=== PATIENT | female | born 1955 | race Caucasian/White ===

== ENCOUNTER → 2017-10-23 15:00 | Outpatient (REF) | payer MEDICAID, SELFPAY ==
[2017-10-23 18:19] LABS: Basophils # 0.1 K/mm3 (0-0.2); Basophils % 0.7 % (0.1-2.0); Eosinophils # 0.3 K/mm3 (0.0-0.4); Eosinophils % 2.7 % (0.1-12.0); Hematocrit 41.6 % (37.0-47.0); Hemoglobin 12.9 g/dL (12.2-16.2); Lymphocytes # 2.9 K/mm3 (0.7-4.5); Lymphocytes % 27.8 K/mm3 (10-50); Mean Corpuscular Volume 90.6 fl (81-99); Mean Platelet Volume 10.1 fl (7.4-10.4); Monocytes # 0.6 K/mm3 (0.1-1.0); Monocytes % 5.4 % (1.7-9.3); Neutrophils # 6.6 K/mm3 (1.8-7.8); Neutrophils % 63.3 % (37.0-80.0); Platelet Count 319 K/mm3 (142-424); Red Blood Count 4.59 M/mm3 (4.20-5.40); Red Cell Distribution Width 13.9 % (11.5-17.5); White Blood Count 10.4 K/mm3 (4.8-10.8)
[2017-10-23 18:41] LABS: Alanine Aminotransferase 19 U/L (12-78); Albumin Level 4.3 gm/dL (3.4-5.0); Albumin/Globulin Ratio 1.3 (1.1-1.8); Alkaline Phosphatase 62 U/L (46-116); Anion Gap 17.9 mEq/L (5-15); Aspartate Amino Transferase 11 U/L (15-37); Bilirubin,Total 0.4 mg/dL (0.2-1.0); Blood Urea Nitrogen 17 mg/dL (7-18); Carbon Dioxide 23 mmol/L (21.0-32.0); Chloride 100 mmol/L (98-107); Chol/HDL Ratio 2.4 (1-3.5); Cholesterol 130 mg/dL (140-200); Creatinine,Serum 1.03 mg/dL (0.55-1.02); Estimated Glomerular Filt Rate 54 ml/min (>60); Free T4 (Free Thyroxine) 1.22 ng/dl (0.76-1.46); GFR (African American) 65 ML/MIN (>60); Globulin 3.2 gm/dl (1.3-3.2); Glucose 384 mg/dL (74-106); HDL Cholesterol 55 mg/dL (29-89); LDL Cholesterol 39 mg/dL (0-130); Potassium 4.9 mmoL/L (3.5-5.1); Sodium 136 mmol/L (136-145); Thyroid Stimulating Hormone 1.24 uIU/ml (0.358-3.740); Total Protein,Serum 7.5 gm/dL (6.4-8.2); Triglycerides 178 mg/dL (30-200); VLDL Cholesterol 36 mg/dL (0-40)
[2017-10-23 18:59] LABS: Hemoglobin A1C 10.2 % (0.0-7.0)
[2017-10-25 11:18] LABS: Creatinine, Urine 64.9 mg/dL (Not Estab.); Microalbumin, Urine 23.3 ug/mL (Not Estab.)
== END ==
LOC: LAB 15:00
PROVIDERS: Visit Provider Physician Assistant
DX: E11.65 Type 2 diabetes mellitus with hyperglycemia (principal); E53.8 Deficiency of other specified B group vitamins; I25.10 Atherosclerotic heart disease of native coronary artery without angina pectoris; E03.9 Hypothyroidism, unspecified; K21.9 Gastro-esophageal reflux disease without esophagitis; E78.5 Hyperlipidemia, unspecified; I10 Essential (primary) hypertension; M79.7 Fibromyalgia
CPT/HCPCS: 80053; 80061; 82043; 82570; 82652; 83036; 84439; 84443; 85025

== ENCOUNTER → 2018-01-24 14:32 | Outpatient (REF) | payer MEDICAID, SELFPAY ==
[2018-01-24 19:10] LABS: Hemoglobin A1C 8.7 % (0.0-7.0)
== END ==
LOC: LAB 14:32
PROVIDERS: Visit Provider Physician Assistant
DX: M79.7 Fibromyalgia (principal); E11.9 Type 2 diabetes mellitus without complications
CPT/HCPCS: 83036

== ENCOUNTER → 2019-01-08 17:33 | Outpatient (CLI) | payer MEDICAID, SELFPAY ==
[2019-01-08 18:11] LABS: Basophils # 0.1 K/mm3 (0-0.2); Basophils % 0.7 % (0.1-2.0); Eosinophils # 0.4 K/mm3 (0.0-0.4); Eosinophils % 4.6 % (0.1-12.0); Hematocrit 39.5 % (37.0-47.0); Hemoglobin 12.5 g/dL (12.2-16.2); Lymphocytes # 2.6 K/mm3 (0.7-4.5); Lymphocytes % 27.8 % (10-50); Mean Corpuscular HGB Conc 31.8 g/dL (31.8-35.4); Mean Corpuscular Hemoglobin 28.6 pg (27.0-31.2); Mean Corpuscular Volume 89.9 fl (81-99); Monocytes # 0.4 K/mm3 (0.1-1.0); Monocytes % 4.3 % (1.7-9.3); Neutrophils # 5.7 K/mm3 (1.8-7.8); Neutrophils % 62.5 % (37.0-80.0); Platelet Count 370 K/mm3 (142-424); Red Blood Count 4.39 M/mm3 (4.20-5.40); Red Cell Distribution Width 13.9 % (11.5-17.5); White Blood Count 9.2 K/mm3 (4.8-10.8)
[2019-01-08 18:27] LABS: Hemoglobin A1C 8.5 % (0.0-7.0)
[2019-01-08 18:29] LABS: Alanine Aminotransferase 24 U/L (12-78); Albumin Level 4.1 gm/dL (3.4-5.0); Albumin/Globulin Ratio 1.4 (1.1-1.8); Alkaline Phosphatase 67 U/L (46-116); Anion Gap 17.6 mEq/L (5-15); Aspartate Amino Transferase 13 U/L (15-37); Bilirubin,Total 0.4 mg/dL (0.2-1.0); Blood Urea Nitrogen 13 mg/dL (7-18); Calcium 9.3 mg/dL (8.5-10.1); Carbon Dioxide 23 mmol/L (21.0-32.0); Chloride 94 mmol/L (98-107); Chol/HDL Ratio 1.9 (1-3.5); Cholesterol 124 mg/dL (140-200); Creatinine,Serum 1.01 mg/dL (0.55-1.02); Estimated Glomerular Filt Rate 55 ml/min (>60); GFR (African American) 67 ML/MIN (>60); Globulin 2.9 gm/dl (1.3-3.2); Glucose 288 mg/dL (74-106); HDL Cholesterol 64 mg/dL (29-89); LDL Cholesterol 48 mg/dL (0-130); Potassium 4.6 mmoL/L (3.5-5.1); Sodium 130 mmol/L (136-145); T4 (Thyroxine) 6.9 ug/dl (4.7-13.3); Thyroid Stimulating Hormone 1.33 uIU/ml (0.358-3.740); Triglycerides 61 mg/dL (30-200); VLDL Cholesterol 12 mg/dL (0-40)
[2019-01-10 11:34] LABS: Vitamin D 25 Hydroxy 36.1 ng/mL (30.0-100.0)
== END ==
PROVIDERS: Visit Provider Physician Assistant
DX: E11.9 Type 2 diabetes mellitus without complications (principal); Z79.4 Long term (current) use of insulin; E55.9 Vitamin D deficiency, unspecified
CPT/HCPCS: 80053; 80061; 82652; 83036; 84436; 84443; 85025

== ENCOUNTER → 2020-02-18 17:36 | Outpatient (CLI) | payer MEDICARE, MEDICAID, SELFPAY ==
[2020-02-18 19:55] LABS: Alanine Aminotransferase 16 U/L (12-78); Albumin Level 4.5 g/dl (3.5-5.0); Albumin/Globulin Ratio 1.6 (1.1-1.8); Alkaline Phosphatase 101 U/L (38-126); Anion Gap 19.4 mEq/L (5-15); Aspartate Amino Transferase 29 U/L (14-36); Bilirubin,Total 0.5 mg/dl (0.2-1.3); Blood Urea Nitrogen 20 mg/dl (7-17); Carbon Dioxide 21 mmol/L (22.0-30.0); Chloride 100 mmol/L (98-107); Cholesterol 148 mg/dl (140-200); Estimated Glomerular Filt Rate 72 ml/min (>60); GFR (African American) 87 ML/MIN (>60); Globulin 2.9 g/dL (1.3-3.2); Glucose 241 mg/dl (74-100); HDL Cholesterol 74 mg/dl (40-60); Potassium 4.4 mmoL/L (3.5-5.1); Sodium 136 mmol/L (136-145); Total Protein,Serum 7.4 g/dl (6.3-8.2); Triglycerides 87 mg/dl (30-150); VLDL Cholesterol 17 mg/dL (0-40)
[2020-02-18 20:07] LABS: Direct LDL Cholesterol 59.79 mg/dL (100-129)
[2020-02-18 20:13] LABS: Hemoglobin A1C 8.4 % (4.0-6.0); T4 (Thyroxine) 8.3 ug/dl (5.53-11.0)
[2020-02-18 20:26] LABS: Thyroid Stimulating Hormone 1.37 uIU/mL (0.465-4.68)
[2020-02-18 20:32] LABS: Basophils # 0.1 K/mm3 (0-0.2); Basophils % 0.5 % (0.1-2.0); Eosinophils # 0.3 K/mm3 (0.0-0.4); Eosinophils % 2.2 % (0.1-12.0); Hemoglobin 13.4 g/dL (12.2-16.2); Lymphocytes # 3.3 K/mm3 (0.7-4.5); Lymphocytes % 28.8 % (10-50); Mean Corpuscular HGB Conc 33.5 g/dL (31.8-35.4); Mean Corpuscular Volume 89.6 fl (81-99); Mean Platelet Volume 9.8 fl (7.4-10.4); Monocytes # 0.6 K/mm3 (0.1-1.0); Neutrophils # 7.2 K/mm3 (1.8-7.8); Neutrophils % 63.5 % (37.0-80.0); Platelet Count 316 K/mm3 (142-424); Red Blood Count 4.46 M/mm3 (4.20-5.40); Red Cell Distribution Width 13.8 % (11.5-17.5); White Blood Count 11.3 K/mm3 (4.8-10.8)
[2020-02-18 22:47] LABS: Creatinine,Urine Random 15 mg/dL (Not Estab.); Microalbumin < 6.000 mg/L (0-16.7)
== END ==
PROVIDERS: Visit Provider Physician Assistant
DX: E11.40 Type 2 diabetes mellitus with diabetic neuropathy, unspecified (principal); E55.9 Vitamin D deficiency, unspecified
CPT/HCPCS: 80053; 80061; 82043; 82306; 82570; 83036; 84436; 84443; 85025

== ENCOUNTER → 2020-07-21 13:05 | Outpatient (CLI) | payer MEDICARE, MEDICAID, SELFPAY ==
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
== END ==
PROVIDERS: PCP Physician Assistant; Visit Provider Emergency Medicine
DX: M54.9 Dorsalgia, unspecified (principal); M54.5 Low back pain
CPT/HCPCS: 72148; 76376

== ENCOUNTER → 2020-08-23 18:08 | Outpatient (CLI) | payer MEDICARE, MEDICAID, SELFPAY ==
[2020-08-23 19:02] LABS: Microalbumin/Creatinine Ratio 55.3
[2020-08-23 19:04] LABS: Creatinine,Urine Random 15 mg/dL (Not Estab.)
== END ==
PROVIDERS: Visit Provider Emergency Medicine
DX: G62.9 Polyneuropathy, unspecified (principal)
CPT/HCPCS: 82043; 82570

== ENCOUNTER → 2020-10-19 17:29 | Outpatient (CLI) | payer MEDICARE, MEDICAID, SELFPAY ==
[2020-10-20 15:11] LABS: Barbiturates Screen,Urine Negative ng/ml (<200)
[2020-10-20 15:12] LABS: Amphetamine/Metha Screen,Urine Negative ng/ml (<1000); Benzodiazepines Screen,Urine Negative ng/ml (<200)
[2020-10-20 15:13] LABS: Cannabinoid Screen,Urine Negative ng/ml (<50); Cocaine Screen,Urine Negative ng/ml (<300)
[2020-10-20 15:14] LABS: Methadone Screen,Urine Negative ng/ml (<300)
[2020-10-20 15:15] LABS: Opiate Screen,Urine Positive ng/ml (<300); Phencyclidine Screen,Urine Negative ng/ml (<25)
== END ==
PROVIDERS: Visit Provider Emergency Medicine
DX: G62.9 Polyneuropathy, unspecified (principal); M48.061 Spinal stenosis, lumbar region without neurogenic claudication; M79.7 Fibromyalgia
CPT/HCPCS: 80305

== ENCOUNTER → 2020-12-22 18:24 | Outpatient (CLI) | payer MEDICARE, MEDICAID, SELFPAY ==
[2020-12-22 19:28] LABS: Phencyclidine Screen,Urine Negative ng/ml (<25)
[2020-12-22 19:36] LABS: Barbiturates Screen,Urine Negative ng/ml (<200); Methadone Screen,Urine Negative ng/ml (<300)
[2020-12-22 19:37] LABS: Amphetamine/Metha Screen,Urine Negative ng/ml (<1000)
[2020-12-22 19:39] LABS: Cannabinoid Screen,Urine Negative ng/ml (<50); Cocaine Screen,Urine Negative ng/ml (<300)
[2020-12-22 19:40] LABS: Benzodiazepines Screen,Urine Negative ng/ml (<200)
[2020-12-22 19:41] LABS: Opiate Screen,Urine Positive ng/ml (<300)
== END ==
PROVIDERS: Visit Provider Emergency Medicine
DX: M79.7 Fibromyalgia (principal)
CPT/HCPCS: 80305

== ENCOUNTER → 2020-12-30 14:59 | Outpatient (POV) | payer MEDICARE, MEDICAID, SELFPAY ==
[2020-12-30 15:22] VITALS: BP 151/77; PULSE 113; RESP 20; O2SAT 96; BMI 40.8
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
== END ==
PROVIDERS: PCP Emergency Medicine; Visit Provider Clinical Nurse Specialist Family Health
DX: M47.896 Other spondylosis, lumbar region (principal); M54.16 Radiculopathy, lumbar region
CPT/HCPCS: 99202; G0463

== ENCOUNTER → 2021-02-16 18:02 | Outpatient (CLI) | payer MEDICARE, MEDICAID, SELFPAY ==
[2021-02-16 19:09] LABS: Barbiturates Screen,Urine Negative ng/ml (<200); Benzodiazepines Screen,Urine Negative ng/ml (<200)
[2021-02-16 19:10] LABS: Amphetamine/Metha Screen,Urine Negative ng/ml (<1000)
[2021-02-16 19:11] LABS: Cannabinoid Screen,Urine Negative ng/ml (<50); Cocaine Screen,Urine Negative ng/ml (<300)
[2021-02-16 19:12] LABS: Methadone Screen,Urine Negative ng/ml (<300)
[2021-02-16 19:13] LABS: Opiate Screen,Urine Positive ng/ml (<300); Phencyclidine Screen,Urine Negative ng/ml (<25)
== END ==
PROVIDERS: Visit Provider Emergency Medicine
DX: M47.816 Spondylosis without myelopathy or radiculopathy, lumbar region (principal)
CPT/HCPCS: 80305

== ENCOUNTER → 2021-04-18 18:21 | Outpatient (CLI) | payer MEDICARE, MEDICAID, SELFPAY ==
[2021-04-18 19:23] LABS: Amphetamine/Metha Screen,Urine Negative ng/ml (<1000)
[2021-04-18 19:28] LABS: Barbiturates Screen,Urine Negative ng/ml (<200)
[2021-04-18 19:30] LABS: Benzodiazepines Screen,Urine Negative ng/ml (<200)
[2021-04-18 19:31] LABS: Cannabinoid Screen,Urine Negative ng/ml (<50)
[2021-04-18 19:32] LABS: Cocaine Screen,Urine Negative ng/ml (<300); Methadone Screen,Urine Negative ng/ml (<300)
[2021-04-18 19:33] LABS: Opiate Screen,Urine Positive ng/ml (<300); Phencyclidine Screen,Urine Negative ng/ml (<25)
== END ==
PROVIDERS: Visit Provider Emergency Medicine
DX: M47.816 Spondylosis without myelopathy or radiculopathy, lumbar region (principal)
CPT/HCPCS: 80305

== ENCOUNTER → 2021-06-17 17:46 | Outpatient (CLI) | payer MEDICARE, MEDICAID, SELFPAY ==
[2021-06-17 19:54] LABS: Amphetamine/Metha Screen,Urine Negative ng/ml (<1000)
[2021-06-17 19:55] LABS: Barbiturates Screen,Urine Negative ng/ml (<200)
[2021-06-17 19:57] LABS: Benzodiazepines Screen,Urine Negative ng/ml (<200); Cannabinoid Screen,Urine Negative ng/ml (<50)
[2021-06-17 19:58] LABS: Cocaine Screen,Urine Negative ng/ml (<300)
[2021-06-17 19:59] LABS: Methadone Screen,Urine Negative ng/ml (<300); Opiate Screen,Urine Positive ng/ml (<300)
[2021-06-17 20:00] LABS: Phencyclidine Screen,Urine Negative ng/ml (<25)
== END ==
PROVIDERS: Visit Provider Emergency Medicine
DX: M47.816 Spondylosis without myelopathy or radiculopathy, lumbar region (principal)
CPT/HCPCS: 80305

== ENCOUNTER → 2021-08-24 16:00 | Outpatient (CLI) | payer MEDICARE, MEDICAID, SELFPAY ==
[2021-08-24 20:36] LABS: Basophils # 0.2 K/mm3 (0-0.2); Basophils % 1.6 % (0.1-2.0); Eosinophils # 0.5 K/mm3 (0.0-0.4); Eosinophils % 3.9 % (0.1-12.0); Hematocrit 39.9 % (37.0-47.0); Hemoglobin 12.4 g/dL (12.2-16.2); Lymphocytes % 28.9 % (10-50); Mean Corpuscular HGB Conc 31.2 g/dL (31.8-35.4); Mean Corpuscular Hemoglobin 28.5 pg (27.0-31.2); Mean Corpuscular Volume 91.4 fl (81-99); Mean Platelet Volume 9.6 fl (7.4-10.4); Monocytes # 0.6 K/mm3 (0.1-1.0); Monocytes % 4.6 % (1.7-9.3); Neutrophils # 8.4 K/mm3 (1.8-7.8); Platelet Count 417 K/mm3 (142-424); Red Blood Count 4.37 M/mm3 (4.20-5.40); Red Cell Distribution Width 14.8 % (11.5-17.5); White Blood Count 13.7 K/mm3 (4.8-10.8)
[2021-08-24 21:04] LABS: Alanine Aminotransferase 19 U/L (12-78); Albumin Level 4.6 g/dl (3.5-5.0); Albumin/Globulin Ratio 1.6 (1.1-1.8); Alkaline Phosphatase 88 U/L (38-126); Anion Gap 17.1 mEq/L (5-15); Aspartate Amino Transferase 30 U/L (14-36); Bilirubin,Total 0.5 mg/dl (0.2-1.3); Blood Urea Nitrogen 13 mg/dl (7-17); Calcium 9.8 mg/dl (8.4-10.2); Carbon Dioxide 22 mmol/L (22.0-30.0); Chloride 98 mmol/L (98-107); Chol/HDL Ratio 3.4 (1-3.5); Cholesterol 207 mg/dl (140-200); Estimated Glomerular Filt Rate 83 ml/min (>60); GFR (African American) 101 ML/MIN (>60); Globulin 2.8 g/dL (1.3-3.2); Glucose 229 mg/dl (74-100); HDL Cholesterol 61 mg/dl (40-60); Potassium 5.1 mmoL/L (3.5-5.1); Sodium 132 mmol/L (136-145); Total Protein,Serum 7.4 g/dl (6.3-8.2); Triglycerides 116 mg/dl (30-150); VLDL Cholesterol 23 mg/dL (0-40)
[2021-08-24 21:06] LABS: Hemoglobin A1C 9.1 % (4.0-6.0)
[2021-08-24 21:22] LABS: Free T4 (Free Thyroxine) 1.85 ng/dl (0.78-2.19)
[2021-08-24 21:26] LABS: Direct LDL Cholesterol 121.15 mg/dL (100-129)
[2021-08-24 21:35] LABS: Thyroid Stimulating Hormone 0.98 uIU/mL (0.465-4.68)
[2021-08-24 22:17] LABS: Amphetamine/Metha Screen,Urine Negative ng/ml (<1000)
[2021-08-24 22:19] LABS: Barbiturates Screen,Urine Negative ng/ml (<200); Benzodiazepines Screen,Urine Negative ng/ml (<200)
[2021-08-24 22:20] LABS: Cannabinoid Screen,Urine Negative ng/ml (<50)
[2021-08-24 22:21] LABS: Cocaine Screen,Urine Negative ng/ml (<300); Methadone Screen,Urine Negative ng/ml (<300)
[2021-08-24 22:22] LABS: Opiate Screen,Urine Positive ng/ml (<300)
[2021-08-24 22:24] LABS: Phencyclidine Screen,Urine Negative ng/ml (<25)
[2021-08-24 22:34] LABS: Creatinine,Urine Random 20 mg/dL (Not Estab.)
== END ==
PROVIDERS: Visit Provider Emergency Medicine
DX: E11.9 Type 2 diabetes mellitus without complications (principal); E55.9 Vitamin D deficiency, unspecified; M47.816 Spondylosis without myelopathy or radiculopathy, lumbar region; Z79.4 Long term (current) use of insulin
CPT/HCPCS: 80053; 80061; 80305; 82043; 82306; 82570; 83036; 84439; 84443; 85025

== ENCOUNTER → 2021-11-07 08:47 | Outpatient (CLI) | payer MEDICARE, MEDICAID, SELFPAY ==
[2021-11-07 19:59] LABS: Amphetamine/Metha Screen,Urine Negative ng/ml (<1000); Barbiturates Screen,Urine Negative ng/ml (<200)
[2021-11-07 20:01] LABS: Benzodiazepines Screen,Urine Negative ng/ml (<200)
[2021-11-07 20:02] LABS: Cannabinoid Screen,Urine Negative ng/ml (<50); Cocaine Screen,Urine Negative ng/ml (<300)
[2021-11-07 20:04] LABS: Phencyclidine Screen,Urine Negative ng/ml (<25)
[2021-11-07 20:12] LABS: Methadone Screen,Urine Negative ng/ml (<300); Opiate Screen,Urine Positive ng/ml (<300)
== END ==
PROVIDERS: PCP Emergency Medicine; Visit Provider Emergency Medicine
DX: M47.816 Spondylosis without myelopathy or radiculopathy, lumbar region (principal)
CPT/HCPCS: 80305

== ENCOUNTER → 2022-01-03 11:59 | Outpatient (CLI) | payer MEDICARE, MEDICAID, SELFPAY ==
[2022-01-03 13:25] LABS: Amphetamine/Metha Screen,Urine Negative ng/ml (<1000)
[2022-01-03 13:26] LABS: Barbiturates Screen,Urine Negative ng/ml (<200)
[2022-01-03 13:27] LABS: Benzodiazepines Screen,Urine Negative ng/ml (<200); Cannabinoid Screen,Urine Negative ng/ml (<50)
[2022-01-03 13:28] LABS: Cocaine Screen,Urine Negative ng/ml (<300)
[2022-01-03 13:29] LABS: Methadone Screen,Urine Negative ng/ml (<300); Opiate Screen,Urine Positive ng/ml (<300)
[2022-01-03 13:30] LABS: Phencyclidine Screen,Urine Negative ng/ml (<25)
== END ==
PROVIDERS: PCP Emergency Medicine; Visit Provider Emergency Medicine
DX: M47.816 Spondylosis without myelopathy or radiculopathy, lumbar region (principal)
CPT/HCPCS: 80305

== ENCOUNTER → 2022-01-03 16:06 | Outpatient (CLI) | payer MEDICARE, MEDICAID, SELFPAY | PROVIDERS: Visit Provider Emergency Medicine | DX: M47.816 Spondylosis without myelopathy or radiculopathy, lumbar region (principal) ==

== ENCOUNTER → 2022-03-01 13:22 | Outpatient (CLI) | payer MEDICARE, MEDICAID, SELFPAY ==
[2022-03-01 17:57] LABS: Phencyclidine Screen,Urine Negative ng/ml (<25)
[2022-03-01 18:04] LABS: Amphetamine/Metha Screen,Urine Negative ng/ml (<1000); Barbiturates Screen,Urine Negative ng/ml (<200)
[2022-03-01 18:05] LABS: Benzodiazepines Screen,Urine Negative ng/ml (<200)
[2022-03-01 18:06] LABS: Cannabinoid Screen,Urine Negative ng/ml (<50)
[2022-03-01 18:08] LABS: Opiate Screen,Urine Positive ng/ml (<300)
[2022-03-01 18:09] LABS: Cocaine Screen,Urine Negative ng/ml (<300); Methadone Screen,Urine Negative ng/ml (<300)
== END ==
PROVIDERS: PCP Emergency Medicine; Visit Provider Emergency Medicine
DX: M47.816 Spondylosis without myelopathy or radiculopathy, lumbar region (principal); Z79.899 Other long term (current) drug therapy
CPT/HCPCS: 80305

== ENCOUNTER → 2022-04-28 10:15 | Outpatient (CLI) | payer MEDICARE, MEDICAID, SELFPAY ==
[2022-04-28 19:25] LABS: Amphetamine/Metha Screen,Urine Negative ng/ml (<1000); Barbiturates Screen,Urine Negative ng/ml (<200)
[2022-04-28 19:26] LABS: Benzodiazepines Screen,Urine Negative ng/ml (<200); Cannabinoid Screen,Urine Negative ng/ml (<50)
[2022-04-28 19:27] LABS: Cocaine Screen,Urine Negative ng/ml (<300)
[2022-04-28 19:28] LABS: Methadone Screen,Urine Negative ng/ml (<300); Opiate Screen,Urine Positive ng/ml (<300)
[2022-04-28 19:29] LABS: Phencyclidine Screen,Urine Negative ng/ml (<25)
== END ==
PROVIDERS: PCP Emergency Medicine; Visit Provider Emergency Medicine
DX: M47.816 Spondylosis without myelopathy or radiculopathy, lumbar region (principal)
CPT/HCPCS: 80305

== ENCOUNTER → 2022-06-26 18:37 | Outpatient (CLI) | payer MEDICARE, MEDICAID, SELFPAY ==
[2022-06-26 20:00] LABS: Amphetamine/Metha Screen,Urine Negative ng/ml (<1000)
[2022-06-26 20:01] LABS: Barbiturates Screen,Urine Negative ng/ml (<200); Benzodiazepines Screen,Urine Negative ng/ml (<200)
[2022-06-26 20:02] LABS: Cannabinoid Screen,Urine Negative ng/ml (<50)
[2022-06-26 20:03] LABS: Cocaine Screen,Urine Negative ng/ml (<300); Methadone Screen,Urine Negative ng/ml (<300)
[2022-06-26 20:04] LABS: Opiate Screen,Urine Positive ng/ml (<300)
[2022-06-26 20:05] LABS: Phencyclidine Screen,Urine Negative ng/ml (<25)
== END ==
PROVIDERS: Visit Provider Emergency Medicine
DX: M47.816 Spondylosis without myelopathy or radiculopathy, lumbar region (principal)
CPT/HCPCS: 80305

== ENCOUNTER → 2022-08-29 23:58 | Outpatient (CLI) | payer MEDICARE, MEDICAID, SELFPAY ==
[2022-08-29 17:52] LABS: Amphetamine/Metha Screen,Urine Negative ng/ml (<1000); Barbiturates Screen,Urine Negative ng/ml (<200); Benzodiazepines Screen,Urine Negative ng/ml (<200); Cannabinoid Screen,Urine Negative ng/ml (<50); Cocaine Screen,Urine Negative ng/ml (<300); Methadone Screen,Urine Negative ng/ml (<300); Opiate Screen,Urine Positive ng/ml (<300); Phencyclidine Screen,Urine Negative ng/ml (<25)
== END ==
PROVIDERS: PCP Emergency Medicine; Visit Provider Emergency Medicine
DX: M47.816 Spondylosis without myelopathy or radiculopathy, lumbar region (principal)
CPT/HCPCS: 80305

== ENCOUNTER → 2022-12-18 16:00 | Outpatient (CLI) | payer MEDICARE, MEDICAID, SELFPAY ==
[2022-12-18 19:20] LABS: Amphetamine/Metha Screen,Urine Negative ng/ml (<1000)
[2022-12-18 19:21] LABS: Barbiturates Screen,Urine Negative ng/ml (<200); Benzodiazepines Screen,Urine Positive ng/ml (<200)
[2022-12-18 19:22] LABS: Cannabinoid Screen,Urine Negative ng/ml (<50)
[2022-12-18 19:23] LABS: Cocaine Screen,Urine Negative ng/ml (<300); Methadone Screen,Urine Negative ng/ml (<300)
[2022-12-18 19:24] LABS: Opiate Screen,Urine Positive ng/ml (<300)
[2022-12-18 19:25] LABS: Phencyclidine Screen,Urine Negative ng/ml (<25)
== END ==
PROVIDERS: PCP Emergency Medicine; Visit Provider Emergency Medicine
DX: M47.816 Spondylosis without myelopathy or radiculopathy, lumbar region (principal)
CPT/HCPCS: 80305

== ENCOUNTER → 2023-04-21 08:23 | Outpatient (CLI) | payer MEDICARE, MEDICAID, SELFPAY ==
[2023-04-20 19:07] LABS: Basophils # 0.1 K/mm3 (0-0.2); Basophils % 0.6 % (0.1-2.0); Eosinophils # 0.4 K/mm3 (0.0-0.4); Hemoglobin 13.5 g/dL (12.2-16.2); Lymphocytes # 5.5 K/mm3 (0.7-4.5); Lymphocytes % 36.8 % (10-50); Mean Corpuscular HGB Conc 31.4 g/dL (31.8-35.4); Mean Corpuscular Hemoglobin 28.7 pg (27.0-31.2); Mean Corpuscular Volume 91.5 fl (81-99); Mean Platelet Volume 9.5 fl (7.4-10.4); Monocytes # 0.9 K/mm3 (0.1-1.0); Monocytes % 6.1 % (1.7-9.3); Neutrophils # 7.9 K/mm3 (1.8-7.8); Neutrophils % 53.4 % (37.0-80.0); Platelet Count 390 K/mm3 (142-424); Red Cell Distribution Width 13.7 % (11.5-17.5); White Blood Count 14.8 K/mm3 (4.8-10.8)
[2023-04-20 20:12] LABS: Alanine Aminotransferase 23 U/L (12-78); Albumin Level 4.6 g/dl (3.5-5.0); Albumin/Globulin Ratio 1.5 (1.1-1.8); Alkaline Phosphatase 67 U/L (38-126); Anion Gap 17.9 mEq/L (5-15); Aspartate Amino Transferase 30 U/L (14-36); Bilirubin,Total 0.4 mg/dl (0.2-1.3); Blood Urea Nitrogen 14 mg/dl (7-17); Calcium 9.8 mg/dl (8.4-10.2); Carbon Dioxide 21 mmol/L (22.0-30.0); Chloride 103 mmol/L (98-107); Cholesterol 114 mg/dl (140-200); Estimated Glomerular Filt Rate 62 ml/min (>60); GFR (African American) 75 ML/MIN (>60); Globulin 3.1 g/dL (1.3-3.2); Glucose 168 mg/dl (74-100); HDL Cholesterol 57 mg/dl (40-60); Potassium 4.9 mmoL/L (3.5-5.1); Sodium 137 mmol/L (136-145); Total Protein,Serum 7.7 g/dl (6.3-8.2); Triglycerides 119 mg/dl (30-150); VLDL Cholesterol 24 mg/dL (0-40)
[2023-04-20 20:23] LABS: Direct LDL Cholesterol 44.69 mg/dL (100-129)
[2023-04-20 20:29] LABS: T4 (Thyroxine) 7.3 ug/dl (5.53-11.0)
[2023-04-20 20:43] LABS: Thyroid Stimulating Hormone 1.75 uIU/mL (0.465-4.68)
[2023-04-20 22:17] LABS: Hemoglobin A1C 7.3 % (4.0-6.0)
[2023-04-21 02:28] LABS: Creatinine,Urine Random 141 mg/dL (Not Estab.)
[2023-04-21 02:30] LABS: Microalbumin/Creatinine Ratio 48.8
[2023-04-21 02:31] LABS: Benzodiazepines Screen,Urine Negative ng/ml (<200)
[2023-04-21 02:32] LABS: Amphetamine/Metha Screen,Urine Negative ng/ml (<1000); Barbiturates Screen,Urine Negative ng/ml (<200)
[2023-04-21 02:33] LABS: Cannabinoid Screen,Urine Negative ng/ml (<50)
[2023-04-21 02:34] LABS: Cocaine Screen,Urine Negative ng/ml (<300); Methadone Screen,Urine Negative ng/ml (<300)
[2023-04-21 02:35] LABS: Opiate Screen,Urine Positive ng/ml (<300)
[2023-04-21 02:36] LABS: Phencyclidine Screen,Urine Negative ng/ml (<25)
== END ==
PROVIDERS: PCP Emergency Medicine; Visit Provider Emergency Medicine
DX: E11.65 Type 2 diabetes mellitus with hyperglycemia (principal); E55.9 Vitamin D deficiency, unspecified; M47.816 Spondylosis without myelopathy or radiculopathy, lumbar region; E11.40 Type 2 diabetes mellitus with diabetic neuropathy, unspecified; Z79.4 Long term (current) use of insulin
CPT/HCPCS: 80053; 80061; 80305; 82043; 82306; 82570; 83036; 84436; 84443; 85025

== ENCOUNTER → 2023-06-18 23:56 | Outpatient (CLI) | payer MEDICARE, SELFPAY ==
[2023-06-18 18:56] LABS: Barbiturates Screen,Urine Negative ng/ml (<200)
[2023-06-18 18:57] LABS: Amphetamine/Metha Screen,Urine Negative ng/ml (<1000); Benzodiazepines Screen,Urine Negative ng/ml (<200)
[2023-06-18 18:59] LABS: Cocaine Screen,Urine Negative ng/ml (<300)
[2023-06-18 19:00] LABS: Cannabinoid Screen,Urine Negative ng/ml (<50)
[2023-06-18 19:01] LABS: Phencyclidine Screen,Urine Negative ng/ml (<25)
[2023-06-18 19:15] LABS: Methadone Screen,Urine Negative ng/ml (<300); Opiate Screen,Urine Positive ng/ml (<300)
== END ==
PROVIDERS: PCP Family Medicine; Visit Provider Family Medicine
DX: Z79.899 Other long term (current) drug therapy (principal)
CPT/HCPCS: 80305

== ENCOUNTER 2023-07-18 06:48 | Outpatient (CLI) | payer MEDICARE, SELFPAY ==
[2023-07-18 22:50] LABS: Amphetamine/Metha Screen,Urine Negative ng/ml (<1000)
[2023-07-18 22:51] LABS: Cannabinoid Screen,Urine Negative ng/ml (<50)
[2023-07-18 22:52] LABS: Cocaine Screen,Urine Negative ng/ml (<300)
[2023-07-18 22:53] LABS: Opiate Screen,Urine Positive ng/ml (<300); Phencyclidine Screen,Urine Negative ng/ml (<25)
[2023-07-18 23:18] LABS: Barbiturates Screen,Urine Negative ng/ml (<200); Benzodiazepines Screen,Urine Negative ng/ml (<200); Methadone Screen,Urine Negative ng/ml (<300)
[2023-07-24 06:04] LABS: Alprazolam Negative (Cutoff=100); Benzodiazepines Negative ng/mL (Cutoff=100); Clonazepam Negative (Cutoff=100); Codeine Negative (Cutoff=100); Flurazepam Negative (Cutoff=100); Hydrocodone Positive (.); Hydromorphone Positive (.); Lorazepam Negative (Cutoff=100); Midazolam Negative (Cutoff=100); Morphine Negative (Cutoff=100); Opiates Positive (.); Temazepam Negative (Cutoff=100); Triazolam Negative (Cutoff=100)
== END 2023-07-18 23:59 ==
LOC: LAB.DROPOF 07-19 06:49
PROVIDERS: PCP Family Medicine; Visit Provider Family Medicine
DX: Z79.899 Other long term (current) drug therapy (principal)
CPT/HCPCS: 80307; 80346; 80361; 80365; G0480

== ENCOUNTER 2023-10-22 22:59 | Outpatient (CLI) | payer MEDICARE, SELFPAY ==
[2023-10-22 19:40] LABS: Basophils # 0.1 K/mm3 (0-0.2); Basophils % 0.9 % (0.1-2.0); Eosinophils # 0.3 K/mm3 (0.0-0.4); Eosinophils % 2.4 % (0.1-12.0); Hemoglobin 13.5 g/dL (12.2-16.2); Lymphocytes % 27.5 % (10-50); Mean Corpuscular HGB Conc 32.1 g/dL (31.8-35.4); Mean Corpuscular Hemoglobin 29.4 pg (27.0-31.2); Mean Corpuscular Volume 91.5 fl (81-99); Mean Platelet Volume 9.4 fl (7.4-10.4); Monocytes # 0.6 K/mm3 (0.1-1.0); Monocytes % 4.1 % (1.7-9.3); Neutrophils # 9.5 K/mm3 (1.8-7.8); Neutrophils % 65.2 % (37.0-80.0); Platelet Count 392 K/mm3 (142-424); Red Blood Count 4.58 M/mm3 (4.20-5.40); Red Cell Distribution Width 14.1 % (11.5-17.5); White Blood Count 14.5 K/mm3 (4.8-10.8)
[2023-10-22 20:47] LABS: Hemoglobin A1C 8.3 % (4.0-6.0)
[2023-10-22 21:40] LABS: Alanine Aminotransferase 29 U/L (12-78); Albumin Level 4.6 g/dl (3.5-5.0); Albumin/Globulin Ratio 1.6 (1.1-1.8); Alkaline Phosphatase 88 U/L (38-126); Anion Gap 18.6 mEq/L (5-15); Aspartate Amino Transferase 35 U/L (14-36); Bilirubin,Total 0.6 mg/dl (0.2-1.3); Blood Urea Nitrogen 13 mg/dl (7-17); Calcium 10.2 mg/dl (8.4-10.2); Carbon Dioxide 20 mmol/L (22.0-30.0); Chloride 101 mmol/L (98-107); Chol/HDL Ratio 2.7 (1-3.5); Cholesterol 129 mg/dl (140-200); Estimated Glomerular Filt Rate 62 ml/min (>60); GFR (African American) 75 ML/MIN (>60); Globulin 2.8 g/dL (1.3-3.2); Glucose 120 mg/dl (74-100); HDL Cholesterol 47 mg/dl (40-60); Potassium 4.6 mmoL/L (3.5-5.1); Sodium 135 mmol/L (136-145); Total Protein,Serum 7.4 g/dl (6.3-8.2); Triglycerides 132 mg/dl (30-150); VLDL Cholesterol 26 mg/dL (0-40)
[2023-10-22 21:51] LABS: Direct LDL Cholesterol 49.18 mg/dL (100-129)
[2023-10-22 21:57] LABS: 25-OH Vitamin D, Total 46.7 ng/mL (30-100)
[2023-10-22 22:11] LABS: Thyroid Stimulating Hormone 1.46 uIU/mL (0.465-4.68)
[2023-10-22 22:30] LABS: Vitamin B12 941 pg/mL (239-931)
== END 2023-10-22 23:59 | disposition home or self-care (01) ==
LOC: LAB.DROPOF 23:00
PROVIDERS: PCP Family Medicine; Visit Provider Family Medicine
DX: R53.83 Other fatigue; G62.9 Polyneuropathy, unspecified; I25.10 Atherosclerotic heart disease of native coronary artery without angina pectoris; I10 Essential (primary) hypertension; E11.9 Type 2 diabetes mellitus without complications; Z79.4 Long term (current) use of insulin; Z79.899 Other long term (current) drug therapy; R79.89 Other specified abnormal findings of blood chemistry; E66.9 Obesity, unspecified; Z68.32 Body mass index [BMI] 32.0-32.9, adult
CPT/HCPCS: 80053; 80061; 82306; 82607; 83036; 84443; 85025